=== PATIENT | female | born 1995 | race Caucasian/White ===

== ENCOUNTER 2021-01-17 17:22 | Inpatient (IN) | payer BC ==
[~2021-01-17] VITALS: Ht 154.9 cm; Wt 84.0 kg
[2021-01-17] MEDS ORDERED: ACETAMINOPHEN 325MG TABLET PO STA (20:43)
[2021-01-17] MEDS ORDERED: KETOROLAC 60MG/2ML VIAL IM STA (20:43)
[2021-01-17 21:15] LABS: CLARITY URINE CLOUDY (CLEAR); COLOR URINE DARK YELLOW (YELLOW); KETONES URINE 3+ (NEGATIVE); LEUKOCYTE ESTERASE URINE TRACE (NEGATIVE); NITRITE URINE NEGATIVE (NEGATIVE); OCCULT BLOOD URINE 3+ (NEGATIVE); PH URINE 5.5 (4.5-8.0); PROTEIN URINE 1+ (NEGATIVE); SPECIFIC GRAVITY URINE 1.041 (1.005-1.030)
[2021-01-17 21:19] LABS: BASOPHILS % 0.6 % (0.0-2.0); EOSINOPHILS % 0.4 % (0.0-5.0); HEMATOCRIT. 38.5 % (36.0-48.0); HEMOGLOBIN. 13.5 g/dL (12.0-16.0); LYMPHOCYTES % 11.2 % (20.0-50.0); MEAN CORPUSCULAR VOLUME 85.5 fL (81.0-99.0); MEAN PLATELET VOLUME 8.9 fl (7.4-10.4); MONOCYTES % 4.5 % (2.0-8.0); NEUTROPHILS % 83.3 % (40.0-76.0); PLATELET 241 x1000/uL (130-400); RED CELL DISTRIBUTION WIDTH 13.6 % (11.6-14.6)
[2021-01-17 21:25] LABS: CHLORIDE 110 mEq/L (98-107)
[2021-01-18] MEDS ORDERED: IOHEXOL-350 100 ML BOTTLE ONE (00:25)
[2021-01-18 01:42] LABS: PARTIAL THROMBOPLASTIN TIME 28.2 sec (23.4-31.0)
[2021-01-18] MEDS ORDERED: HEPARIN 25,000 UNITS PREMIX 250 ML IV PRN (02:00)
[2021-01-18] MEDS ORDERED: HEPARIN 5000 UNITS/ML VIAL IV NR (02:00)
[2021-01-18] MEDS: MORPHINE SULFATE 2 MG/ML CPJ (NOT FOR IM USE) IV PRN ×2 (03:26→08:03)
[2021-01-18] MEDS ORDERED: NALOXONE HCL 0.4MG/ML VIAL IV PRN ×2 (03:30→09:45)
[2021-01-18] MEDS ORDERED: HEPARIN 5000 UNITS/ML VIAL IV PRN ×2 (09:00)
[2021-01-18] MEDS ORDERED: ONDANSETRON HCL 4MG/2ML INJ IV PRN (09:45)
[2021-01-18] MEDS: HYDROCODONE/ACETAMINOPHEN 5/325MG TABLET PO PRN ×2 (10:53→17:54)
[2021-01-18] MEDS: ENOXAPARIN 80MG/0.8ML SYR SUBCUT SCH ×2 (10:56→20:25)
[2021-01-18 14:00] VITALS: BP 99/61
[2021-01-18] MEDS: KETOROLAC 30MG/ML VIAL IV PRN (14:14)
[2021-01-18] MEDS ORDERED: ETON1VAG8 (15:20)
[2021-01-18 15:47] VITALS: BP 97/42
[2021-01-18 20:00] VITALS: BP 98/53
[2021-01-19] VITALS: BP 99/60
[2021-01-19 04:00] VITALS: BP 116/61
[2021-01-19] MEDS: KETOROLAC 30MG/ML VIAL IV PRN ×2 (06:39→17:49)
[2021-01-19 08:00] VITALS: BP 103/56
[2021-01-19] MEDS: ENOXAPARIN 80MG/0.8ML SYR SUBCUT SCH ×2 (08:56→20:31)
[2021-01-19 10:09] LABS: BASOPHILS % 0.4 % (0.0-2.0); HEMATOCRIT. 35.8 % (36.0-48.0); HEMOGLOBIN. 12.2 g/dL (12.0-16.0); MEAN CORPUSCULAR HEMOGLOBIN 29.3 pg (28.0-32.0); MEAN CORPUSCULAR VOLUME 86.2 fL (81.0-99.0); MEAN PLATELET VOLUME 9.2 fl (7.4-10.4); MONOCYTES % 4.4 % (2.0-8.0); NEUTROPHILS % 73.2 % (40.0-76.0); PLATELET 216 x1000/uL (130-400); RED BLOOD CELL COUNT 4.15 mill/uL (4.2-5.4); RED CELL DISTRIBUTION WIDTH 13.5 % (11.6-14.6)
[2021-01-19 10:21] LABS: CHLORIDE 110 mEq/L (98-107)
[2021-01-19 12:00] VITALS: BP 100/69
[2021-01-19 16:00] VITALS: BP 108/67
[2021-01-19] MEDS ORDERED: GUAIFENESIN-DM 200MG-20MG/10ML UDC PO PRN (17:30)
[2021-01-19 20:00] VITALS: BP 112/55
[2021-01-19] MEDS: HYDROCODONE/ACETAMINOPHEN 5/325MG TABLET PO PRN (23:01)
[2021-01-20] VITALS: BP 103/56
[2021-01-20 04:00] VITALS: BP 112/62
[2021-01-20] MEDS: HYDROCODONE/ACETAMINOPHEN 5/325MG TABLET PO PRN (05:22)
[2021-01-20 08:00] VITALS: BP 108/65
[2021-01-20] MEDS: ENOXAPARIN 80MG/0.8ML SYR SUBCUT SCH (09:08)
[2021-01-20 12:00] VITALS: BP 115/71
[2021-01-20] MEDS ORDERED: APIX5TAB MT (17:00)
[2021-01-20] MEDS ORDERED: APIX5TAB PO (17:00)
[2021-01-20 17:08] VITALS: BP 115/71
== END 2021-01-20 18:20 | disposition home or self-care (01) | DRG 175 ==
LOC: ER 17:22 → MICUSO 01-18 01:52 → 7EST 01-18 13:06
PROVIDERS: ADMIT Internal Medicine; ATTEND Internal Medicine
DX: I26.99 Other pulmonary embolism without acute cor pulmonale (principal); J96.00 Acute respiratory failure, unspecified whether with hypoxia or hypercapnia; E44.1 Mild protein-calorie malnutrition; D72.829 Elevated white blood cell count, unspecified; E66.9 Obesity, unspecified; E87.8 Other disorders of electrolyte and fluid balance, not elsewhere classified; Z71.3 Dietary counseling and surveillance; Z68.35 Body mass index [BMI] 35.0-35.9, adult
CPT/HCPCS: 36415; 71045; 71275; 80048; 80053; 81003; 84484; 85025; 85379; 93005; 93306; 93970; 99285; J1644; J1650; J1885; J2270; Q9967

== ENCOUNTER 2024-10-10 14:21 | Emergency (ER) | payer BC ==
[~2024-10-10] VITALS: Ht 154.9 cm; Wt 87.0 kg
[~2024-10-10 14:21] MED LIST: APIX5TAB MT; APIX5TAB PO
[2024-10-10 14:36] VITALS: O2SAT 99
[2024-10-10 15:59] LABS: BASOPHILS % 0.3 % (0.0-2.0); EOSINOPHILS % 0.8 % (0.0-5.0); HEMATOCRIT. 39.3 % (36.0-48.0); LYMPHOCYTES % 18.1 % (20.0-50.0); MEAN CORPUSCULAR HEMOGLOBIN 28.3 pg (28.0-32.0); MEAN CORPUSCULAR VOLUME 85.7 fL (81.0-99.0); MEAN PLATELET VOLUME 9.4 fl (7.4-10.4); MONOCYTES % 5.8 % (2.0-8.0); PLATELET 284 x1000/uL (130-400); RED BLOOD CELL COUNT 4.59 mill/uL (4.2-5.4); RED CELL DISTRIBUTION WIDTH 14.6 % (11.6-14.6)
[2024-10-10 16:02] LABS: CHLORIDE 106 mEq/L (98-107); SODIUM 137 mEq/L (136-145)
[2024-10-10 16:03] LABS: CARBON DIOXIDE 24 mEq/L (21-32)
[2024-10-10 16:04] LABS: CALCIUM 9.3 mg/dL (8.7-10.4)
[2024-10-10 16:08] LABS: CREATININE 0.6 mg/dL (0.6-1.0)
[2024-10-10 16:09] LABS: GLUCOSE 102 mg/dL (70-105); UREA NITROGEN BLOOD 8 mg/dL (9-23)
[2024-10-10 16:12] LABS: D-DIMER 0.65 mg/L FEU (<0.50); PARTIAL THROMBOPLASTIN TIME 26.1 sec (23.4-31.0); PROTHROMBIN TIME 10.8 sec (9.6-11.0)
[2024-10-10 16:25] LABS: B-HCG QUANTITATIVE 116729 mIU/mL (<6); TROPONIN I HIGH SENSITIVITY < 4 ng/L (3.0-34)
[2024-10-10 16:36] VITALS: BP 116/77; PULSE 83; RESP 18; TEMP 36.8; O2SAT 99
[2024-10-10] MEDS ORDERED: IOHEXOL-350 100 ML BOTTLE ONE (22:06)
== END 2024-10-10 20:17 | disposition home or self-care (01) ==
LOC: ER 14:21
DX: O26.891 Other specified pregnancy related conditions, first trimester (principal); R07.89 Other chest pain; Z3A.01 Less than 8 weeks gestation of pregnancy; Z79.01 Long term (current) use of anticoagulants; Z86.711 Personal history of pulmonary embolism
CPT/HCPCS: 99285; 93970; 71275; 80048; 84702; 85025; 85379; 85610; 85730; 86850; 86900; 86901; 84484; 36415; 93005; Q9967